=== PATIENT | female | born 1940 | race Caucasian/White ===

== ENCOUNTER → 2017-07-23 | Outpatient (CLI) | payer OTHER ==
[2016-05-11 14:59] VITALS: BP 145/71
== END ==
LOC: RAD 09:37
PROVIDERS: ATTEND Specialist
DX: M54.6 Pain in thoracic spine (principal)
CPT/HCPCS: A4222

== ENCOUNTER → 2017-07-30 | Outpatient (CLI) | payer OTHER ==
[2016-05-11 14:59] VITALS: BP 145/71
--- NOTE | 2017-07-30 12:43 | NM ---
HISTORY: Back pain Study: Nuclear medicine whole-body bone scan Comparison: Chest and L-spine radiograph 08/05/2015 Technique: Whole body bone scintigraphy was performed in the anterior and posterior projection after the intravenous administration of 26.7 mCi of technetium labeled MDP. Findings: There is degenerative type uptake within the right greater than left AC joints, bilateral knees and a nkles. 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 No suspicious bony uptake is otherwise identified. Physiologic distribution of radiotracer is observed throughout the remainder of the appendicular and axial skeleton. Normal physiologic uptake within the kidneys and urinary bladder are also noted. IMPRESSION: Areas of focal uptake within the thoracolumbar spine correspond to known previous compression fractur es with kyphoplasties. Acute on chronic injury cannot be excluded on the basis of this exam and clini tg correlation as well as correlation with plain films is recommended. Additional areas of degenerative type uptake within the appendicular skeleton, as above. Reported By:
== END ==
LOC: RAD 09:09
PROVIDERS: ATTEND Specialist
DX: M54.6 Pain in thoracic spine (principal); R93.8 Abnormal findings on diagnostic imaging of other specified body structures
CPT/HCPCS: 78306; A4222; A9503